=== PATIENT | male | born 1960 | race Caucasian/White ===

== ENCOUNTER 2019-04-12 15:11 | Emergency (ER) | payer SELFPAY ==
[~2019-04-12] VITALS: Ht 193 cm; Wt 90.0 kg
[2019-04-12 17:51] VITALS: BP 152/68
== END 2019-04-12 17:57 | disposition home or self-care (01) ==
LOC: ER 15:58
DX: Z76.0 Encounter for issue of repeat prescription (principal); E78.00 Pure hypercholesterolemia, unspecified; F20.9 Schizophrenia, unspecified; F17.200 Nicotine dependence, unspecified, uncomplicated; Z98.890 Other specified postprocedural states; Z88.0 Allergy status to penicillin
CPT/HCPCS: 99283